=== PATIENT | female | born 1980 | race Caucasian/White ===

== ENCOUNTER 2017-12-20 19:20 | Emergency (ER) | payer OTHER ==
[~2017-12-20] VITALS: Ht 162.6 cm; Wt 81.6 kg
[2017-12-20 19:23] VITALS: BP 153/92
[2017-12-20] MEDS ORDERED: FOLIC ACID 5 MG/ML SYR ONE (20:42)
[2017-12-20] MEDS ORDERED: MAGNESIUM SULFATE 50% 1000 MG/2 ML VIAL IV ONE (20:42)
[2017-12-20] MEDS ORDERED: MULTIVITAMIN-12 10 ML VIAL IV ONE (20:42)
[2017-12-20] MEDS ORDERED: THIAMINE 200 MG/2 ML VIAL ONE (20:42)
[2017-12-20] MEDS: DIAZEPAM 5 MG TAB PO ONE (20:53)
[2017-12-20] MEDS: MORPHINE SULFATE 2 MG/ML SYR IVP ONE (20:57)
[2017-12-20] MEDS: METOCLOPRAMIDE 10 MG/2 ML INJ VIAL IVP ONE (21:00)
[2017-12-20] MEDS: MULTIVITAMIN-12 10 ML, THIAMINE 100 MG, MAGNESIUM SULFATE 50% 2,000 MG, FOLIC ACID 5 MG... IV ONE ×5 (21:00)
[2017-12-20] MEDS: METOCLOPRAMIDE 10 MG/2 ML INJ VIAL ONE (21:18)
[2017-12-20 21:33] LABS: ANION GAP 11.7 (8-16); CARBON DIOXIDE 28.3 mmol/L (21-32); CREATININE 0.8 mg/dL (0.6-1.3)
[2017-12-20 21:34] LABS: APPEARANCE,URINE CLEAR (CLEAR); BILIRUBIN,URINE NEGATIVE (NEGATIVE); BLOOD, URINE NEGATIVE (NEGATIVE); COLOR,URINE YELLOW (YELLOW); LEUKOCYTE ESTERASE ,URINE NEGATIVE (NEGATIVE); NITRITE, URINE NEGATIVE (NEGATIVE); UGLUCOSE NEGATIVE (NEGATIVE)
[2017-12-20 21:35] LABS: BASOPHILS # (AUTO) 0.1 K/uL (0.00-0.22); BASOPHILS % (AUTO) 1.1 % (0.0-2.0); EOSINOPHILS # (AUTO) 0.3 K/uL (0-0.4); EOSINOPHILS % (AUTO) 4.9 % (0.0-4.0); HEMATOCRIT 39.5 % (36-48); HEMOGLOBIN 13.2 g/dL (12.0-16.0); LYMPHOCYTES # (AUTO) 2.3 K/uL (2.5-16.5); LYMPHOCYTES % (AUTO) 37.3 % (20.5-51.1); MEAN CORPUSCULAR HEMOGLOBIN 31 pg (27-31); MEAN CORPUSCULAR HGB CONC 33 g/dL (33-37); MEAN CORPUSCULAR VOLUME 91.6 fL (80-94); MONOCYTES # (AUTO) 0.4 K/uL (0.8-1.0); MONOCYTES % (AUTO) 6.3 % (1.7-9.3); NEUTROPHILS # (AUTO) 3.1 K/uL (1.8-7.7); NEUTROPHILS % (AUTO) 50.4 % (42.2-75.2); PLATELET COUNT (AUTO) 296 K/uL (140-450); RED BLOOD CELL COUNT(AUTO) 4.31 MIL/uL (4.20-5.40); RED CELL DISTRIBUTION WIDTH 13.2 % (11.6-13.7); WHITE BLOOD COUNT (AUTO) 6.2 K/uL (4.8-10.8)
[2017-12-20 21:37] LABS: AMYLASE 38 U/L (25-115); LIPASE 94 U/L (73-393)
[2017-12-20 21:39] LABS: ACETAMINOPHEN 1.8 ug/ml (10-30); ALBUMIN 2.9 g/dL (3.4-5.0); SALICYLATE 3.2 mg/dL (2.8-20.0); TOTAL BILIRUBIN 0.2 mg/dL (0.0-1.0)
[2017-12-20] MEDS: ONDANSETRON 4 MG/2 ML VIAL IVP ONE (21:40)
[2017-12-20 21:47] LABS: BARBITURATE, URINE NEG. ng/ml (NEG <=200); BENZODIAZEPINE, URINE POS. ng/mL (NEG <=200); CANNABINOID, URINE POS. ng/mL (NEG <=50); COCAINE, URINE NEG. ng/mL (NEG <=300); OPIATE, URINE POS. ng/mL (NEG <=2000); PHENCYCLIDINE SCREEN,URINE NEG. ng/mL (NEG <=25)
== END 2017-12-20 21:40 | disposition left against medical advice (07) ==
LOC: MED 19:20
DX: R10.12 Left upper quadrant pain (principal); R11.2 Nausea with vomiting, unspecified; R51 Headache; R94.31 Abnormal electrocardiogram [ECG] [EKG]; E78.5 Hyperlipidemia, unspecified; Z90.89 Acquired absence of other organs; Z88.1 Allergy status to other antibiotic agents; Z88.5 Allergy status to narcotic agent
CPT/HCPCS: 36415; 71045; 80053; 80305; 81003; 81025; 82150; 82550; 83605; 83690; 84484; 85025; 87040; 93005; 96365; 96375; 99285; A9153; G0480; G0482; J2270; J2765; J3411; J3475; J3490; Q0092

== ENCOUNTER 2017-12-26 18:15 | Emergency (ER) | payer OTHER ==
[~2017-12-26] VITALS: Ht 162.6 cm; Wt 112.0 kg
[2017-12-26 18:20] VITALS: BP 127/81
[2017-12-26] MEDS ORDERED: ZOLP10TA1 PO (18:46)
[2017-12-26] MEDS ORDERED: ALPR1TAB2 PO (18:46)
[2017-12-26 19:10] LABS: BASOPHILS # (AUTO) 0.1 K/uL (0.00-0.22); BASOPHILS % (AUTO) 0.9 % (0.0-2.0); EOSINOPHILS # (AUTO) 0.3 K/uL (0-0.4); HEMATOCRIT 38.1 % (36-48); HEMOGLOBIN 12.8 g/dL (12.0-16.0); LYMPHOCYTES # (AUTO) 2.6 K/uL (2.5-16.5); LYMPHOCYTES % (AUTO) 36.1 % (20.5-51.1); MEAN CORPUSCULAR HEMOGLOBIN 31 pg (27-31); MEAN CORPUSCULAR HGB CONC 34 g/dL (33-37); MEAN CORPUSCULAR VOLUME 91.2 fL (80-94); MONOCYTES # (AUTO) 0.5 K/uL (0.8-1.0); MONOCYTES % (AUTO) 7.4 % (1.7-9.3); NEUTROPHILS # (AUTO) 3.6 K/uL (1.8-7.7); NEUTROPHILS % (AUTO) 51.6 % (42.2-75.2); PLATELET COUNT (AUTO) 289 K/uL (140-450); RED BLOOD CELL COUNT(AUTO) 4.18 MIL/uL (4.20-5.40); RED CELL DISTRIBUTION WIDTH 13.6 % (11.6-13.7); WHITE BLOOD COUNT (AUTO) 7.1 K/uL (4.8-10.8)
[2017-12-26 19:20] LABS: ANION GAP 12.3 (8-16); CARBON DIOXIDE 25.7 mmol/L (21-32); CREATININE 0.8 mg/dL (0.6-1.3)
[2017-12-26] MEDS: MORPHINE SULFATE 4 MG/ML SYR IM ONE (19:20)
[2017-12-26 19:26] LABS: TOTAL BILIRUBIN 0.3 mg/dL (0.0-1.0)
[2017-12-26] MEDS: fentaNYL 0.05 MG/ML VIAL IVP ONE (20:24)
[2017-12-26] MEDS: LORazepam 2 MG/ML VIAL IVP ONE (20:25)
[2017-12-26 20:39] VITALS: BP 132/76
[2017-12-26 20:54] LABS: BARBITURATE, URINE NEG. ng/ml (NEG <=200); BENZODIAZEPINE, URINE POS. ng/mL (NEG <=200); CANNABINOID, URINE POS. ng/mL (NEG <=50); COCAINE, URINE NEG. ng/mL (NEG <=300); OPIATE, URINE POS. ng/mL (NEG <=2000); PHENCYCLIDINE SCREEN,URINE NEG. ng/mL (NEG <=25)
== END 2017-12-26 20:36 | disposition home or self-care (01) ==
LOC: MED 18:15
DX: F10.99 Alcohol use, unspecified with unspecified alcohol-induced disorder (principal); I10 Essential (primary) hypertension; E78.5 Hyperlipidemia, unspecified; F41.9 Anxiety disorder, unspecified; Z79.899 Other long term (current) drug therapy; Z88.1 Allergy status to other antibiotic agents; Z88.8 Allergy status to other drugs, medicaments and biological substances; Z87.891 Personal history of nicotine dependence
CPT/HCPCS: 36415; 71045; 80053; 80305; 83880; 85025; 96372; 96374; 96375; 99285; G0482; J2060; J2270; J3010